=== PATIENT | male | born 1945 | race Caucasian/White ===

== ENCOUNTER 2020-07-01 12:06 | Emergency (ER) | payer MEDICARE, SELFPAY ==
[2020-07-01] VITALS (21 sets, daily range): BP systolic 134–186; BP diastolic 71–114; PULSE 67–85; RESP 12–24; TEMP 36.7; O2SAT 95–99
[2020-07-01 12:54] LABS: Abs Immature Grans 0.02 10^3/uL (0.0-0.06); Absolute Basophil Count 0.06 10^3/uL (0.0-0.2); Absolute Eosinophil Count 0.13 10^3/uL (0.0-0.7); Absolute Neutrophil Count 5.18 10^3/uL (1.2-6.7); Basophils % 0.7; Eosinophils % 1.5; HCT 39.1 % (40.0-50.0); HGB 13.1 g/dL (13.5-17.5); Immature Grans % 0.2; Lymphocytes % 28.6; MCH 31.9 pg (27.0-33.0); MCHC 33.5 % (32.0-36.0); MCV 95.1 fL (80-95); MPV 9.1 fL (8.0-11.0); Monocytes % 7.2; Neutrophils % 61.8; Nucleated RBC 0 %; Platelet Count 271 10^3/uL (130-400); RBC 4.11 10^6/uL (4.36-5.78); RDW 12.2 % (11.8-14.1); RDW-SD 42.8 fL; WBC 8.39 10^3/uL (4.4-10.8)
--- NOTE | 2020-07-01 13:00 | RT.EKG_ITS ---
APPROVED REPORT Exam: Resting ECG Patient Location: E HR:72 bpm ECG Measurements Heart Rate 72 AXIS ID 181 P 0 QRSd 89 QRS -3 QT 392 T 62 QTc 430 Conclusion Sinus rhythm...normal P axis, V-rate 60- 99 Nonspecific T abnormalities, lateral leads...T <-0.10mV, I aVL V5 V6 I have reviewed and interpreted ECG and agree with software generated interpretation.
[2020-07-01 13:06] LABS: ALT 19 U/L (16-63); AST 16 U/L (15-37); Albumin 3.8 g/dL (3.4-5.0); Alkaline Phosphatase 107 U/L (46-116); BUN 27 mg/dL (7-18); Bilirubin, Total 0.5 mg/dL (0.2-1.0); C-Reactive Protein 0.13 mg/dL (0.0-0.3); CREATININE 1.73 mg/dL (0.70-1.30); Calcium 8.6 mg/dL (8.5-10.1); Chloride 105 mmol/L (98-107); Estimated GFR 39.02 (mL/min/1.73m2); Glucose 146 mg/dL (74-106); Potassium 4.2 mmol/L (3.5-5.1); Sodium 141 mmol/L (136-145); Total Protein 7.8 g/dL (6.4-8.2)
--- NOTE | 2020-07-01 13:11 | W.ED.GENAD ---
Discharge Plan Disposition Patient Disposition: HOME Condition: Stable Discharge Details Clinical Impression: Blurred vision, right eye, Hypertension Primary Care Provider: Unknown,Unknown ED Provider: Janee Wahl Discharge Instructions Instructions: Hypertension (ED), Blurred Vision (ED) Additional Instructions: Continue to watch sodium in your diet as this can affect your blood pressure. Continue to watch carbohydrates and sugar as this can affect your blood sugar. Follow-up with your scheduled appointments with your primary care doctor and ophthalmology this week. Also call [facility] tomorrow morning to schedule a follow-up appointment for reevaluation as needed. Return immediately to the emergency department if you develop any worsening or new concerning symptoms. Referrals: [facility] [OTHER] - Discharge Data Discharge Date/Time-TO BE ENTERED AT DEPARTURE: 07/01/20 15:38 Discharge Physician: Janee Wahl Medical Decision Making 74-year-old male with a history of diabetes, hypertension and hypothyroidism who presents for right eye blurry vision and streaking since 930 last night. Blood pressure hypertensive, 160s to 180s systolic/80s. Remainder of vitals within normal limits. Patient appears nontoxic and comfortable and in no acute distress. He states he mainly notices his blurry vision with reading since last night. Patient unable to read anything on the eye chart without his corrective lenses. No focal deficits. Funduscopic exam limited due to lack of dilation the pupil but no obvious abnormalities. Differential diagnosis includes age-related vision loss, diabetic retinopathy, hypertensive retinopathy, CVA, ocular migraine, etc. Will obtain labs and CTA head and neck and give fluids and reassess. Labs reviewed and unremarkable. ESR 25. Glucose 146. C-reactive protein negative. CTA head and neck negative for acute occlusion. Patient reassessed and he denies any other new acute complaints and is requesting to go home. Discussed with patient that an MRI would be more sensitive for any central process but as he has had a similar process before due to age-related vision loss and cataract in his left eye, this may be a more peripheral process. Patient has an appointment with a primary care doctor and ophthalmology this week. Patient saw [facility] a few days ago prior to onset of the blurry vision in his right eye. Patient is advised to call [facility], his primary care doctor and ophthalmology tomorrow to confirm follow-up. He is advised to return here immediately with any acute change. He is advised that he may need an outpatient MRI brain as soon as possible for further evaluation of his right eye blurry vision if indicated. Medical Records Medical records reviewed: Yes I reviewed the patient's medical records. Imaging Data Radiologic Study: Radiologist's impression: CT Angiography Head With Contrast Exam date and time: 07/01/2020 1:11 PM Age: 74 years old Clinical indication: Visual disturbance; Type not specified; Patient HX: RT eye blurry, R/O acute CVA TECHNIQUE: Imaging protocol: Computed tomography angiography of the head with intravenous contrast. 3D rendering (Not supervised by radiologist): MIP and/or 3D reconstructed images were created by the technologist. Radiation optimization: All CT scans at this facility use at least one of these dose optimization techniques: automated exposure control; mA and/or kV adjustment per patient size (includes targeted exams where dose is matched to clinical indication); or iterative reconstruction. Contrast material: OMNI 350; Contrast volume: 85 ml; Contrast route: INTRAVENOUS (IV); COMPARISON: No relevant prior studies available. FINDINGS: ANTERIOR CIRCULATION: Right internal carotid artery: Intracranial atherosclerosis at the right carotid siphon. No significant stenosis or occlusion. Right middle cerebral artery: No flow-limiting stenosis or occlusion. Right anterior cerebral artery: No flow-limiting stenosis or occlusion. Left internal carotid artery: Intracranial atherosclerosis at the left carotid siphon. No significant stenosis or occlusion. Left middle cerebral artery: No flow-limiting stenosis or occlusion. Left anterior cerebral artery: No flow-limiting stenosis or occlusion. POSTERIOR CIRCULATION: Right vertebral artery: No flow-limiting stenosis or occlusion. Left vertebral artery: No flow-limiting stenosis or occlusion. Basilar artery: No flow-limiting stenosis or occlusion. Right posterior cerebral artery: No flow-limiting stenosis or occlusion. Left posterior cerebral artery: No flow-limiting stenosis or occlusion. Brain: No acute large territorial infarction or intracranial hemorrhage. Mild parenchymal volume loss and nonspecific white matter hypodensity, likely chronic microangiopathy. No mass effect or midline shift. Cerebral ventricles: No hydrocephalus. Paranasal sinuses: Mild ethmoid sinus disease. Bones/joints: No acute fracture. Soft tissues: Unremarkable. IMPRESSION: 1. No acute intracranial abnormality. If there is persistent clinical concern, MRI is a more sensitive means to assess for acute ischemia. 2. Intracranial atherosclerosis. No occlusion or flow-limiting stenosis. CT Angiography Neck With Contrast Exam date and time: 07/01/2020 1:11 PM Age: 74 years old Clinical indication: Visual disturbance; Type not specified; Patient HX: RT eye blurry, R/O acute CVA TECHNIQUE: Imaging protocol: Computed tomography angiography of the neck with intravenous contrast. 3D rendering (Not supervised by radiologist): MIP and/or 3D reconstructed images were created by the technologist. Radiation optimization: All CT scans at this facility use at least one of these dose optimization techniques: automated exposure control; mA and/or kV adjustment per patient size (includes targeted exams where dose is matched to clinical indication); or iterative reconstruction. Contrast material: OMNI 350; Contrast volume: 85 ml; Contrast route: INTRAVENOUS (IV); COMPARISON: No relevant prior studies available. FINDINGS: Right common carotid artery: Atherosclerotic disease of the right common carotid artery. No significant stenosis or occlusion. Right internal carotid artery: Atherosclerotic disease, without significant proximal right internal carotid artery stenosis by NASCET criteria. Right external carotid artery: No occlusion or stenosis of the origin. Right vertebral artery: No stenosis. No dissection or occlusion. Left common carotid artery: The left common carotid artery incidentally arises from the right brachiocephalic artery. No flow-limiting stenosis or occlusion. Left internal carotid artery: Retropharyngeal course of the left internal carotid artery. No flow-limiting stenosis or occlusion. Atherosclerotic disease. Left external carotid artery: No occlusion or stenosis of the origin. Left vertebral artery: No stenosis. No dissection or occlusion. Aorta: Atherosclerosis of the arch of the aorta. Bones/joints: Multilevel degenerative changes of the cervical spine. No acute osseous abnormality. Soft tissues: No significant soft tissue swelling. Lungs: Biapical pleuroparenchymal scarring. IMPRESSION: Atherosclerotic disease. No occlusion or flow-limiting stenosis. Lab Data Lab results reviewed: Yes I reviewed the patient's lab results. Labs: Laboratory Tests Range/Units 07/01/20 07/01/20 12:50 12:50 WBC (4.4-10.8) 10^3/uL 8.39 RBC (4.36-5.78) 10^6/uL 4.11 L Hgb (13.5-17.5) g/dL 13.1 L Hct (40.0-50.0) % 39.1 L MCV (80-95) fL 95.1 H MCH (27.0-33.0) pg 31.9 MCHC (32.0-36.0) % 33.5 RDW (11.8-14.1) % 12.2 Plt Count (130-400) 10^3/uL 271 MPV (8.0-11.0) fL 9.1 Immature Gran % 0.2 Neutrophils % 61.8 Lymphocytes % 28.6 Monocytes % 7.2 Eosinophils % 1.5 Basophils % 0.7 Nucleated RBC % % 0 Absolute Neutrophils (1.2-6.7) 10^3/uL 5.18 Absolute Lymphocytes (1.2-3.4) 10^3/uL 2.40 Absolute Monocytes (0.1-0.8) 10^3/uL 0.60 Absolute Eosinophils (0.0-0.7) 10^3/uL 0.13 Absolute Basophils (0.0-0.2) 10^3/uL 0.06 ESR (1-20) mm/hr 25 H Sodium (136-145) mmol/L 141 Potassium (3.5-5.1) mmol/L 4.2 Chloride (98-107) mmol/L 105 Carbon Dioxide (21.0-32.0) mmol/L 27.0 Anion Gap (3-11) mmol/L 9.0 BUN (7-18) mg/dL 27 H Creatinine (0.70-1.30) mg/dL 1.73 H Estimated GFR/1.73 m2 (mL/min/1.73m2) 39.02 Glucose (74-106) mg/dL 146 H Calcium (8.5-10.1) mg/dL 8.6 Total Bilirubin (0.2-1.0) mg/dL 0.5 AST (15-37) U/L 16 ALT (16-63) U/L 19 Alkaline Phosphatase (46-116) U/L 107 C-Reactive Protein (0.0-0.3) mg/dL 0.13 Total Protein (6.4-8.2) g/dL 7.8 Albumin (3.4-5.0) g/dL 3.8 ECG Data Attestation: I personally reviewed and interpreted this ECG (s) as follows: Interpretation: Rate of 72, sinus, T wave inversion in [address]VL[address] No acute [address] elevation or depression. VA 181. QRS 81. QTc 430. HPI General Mode of arrival: ambulatory. Date/Time Provider Initiated Documentation: 07/01/20 12:24. Limitations to Documentation: no limitations. Information obtained by: patient. HPI Narrative: Patient is a 74-year-old male with a history of diabetes, hypertension hypothyroidism who presents with blurry vision in his right eye that started at 930 last night. He states he noticed some streaking in his line of vision on the right side. He states he mainly notices ability vision when he is trying to read. He states he was not too concerned about his symptoms but was advised by a friend who is a nurse to come to the ER to rule out a possible stroke. Patient states he has had a similar episode occur in his left eye for which she was seen by an eye doctor and prescribed prescription eyeglasses. Patient states that he was also told previously that he has a cataract in his right eye and needs eventual bilateral cataract surgery. Patient denies headache, dizziness, fever, neck pain, chest pain, shortness of breath, abdominal pain, extremity weakness or numbness. Patient states he has been told in the past that he had type 2 diabetes but states this was never treated with medication and mainly controlled with diet. Patient states he moved here from [place] almost 5 years ago and is in the process of finding a primary care doctor. Patient states he had previously been treated for hypothyroidism with Synthroid which he states was told by a doctor had caused him to develop hypertension but he did not want to take medication for his thyroid or his blood pressure. Patient states he has not been as active or watching his diet as usual. General Stated Complaint: EyeProblem GIO: 3 Review of Systems All systems reviewed & are unremarkable except as noted in HPI and below Constitutional Constitutional: Reports as per HPI, Denies chills and Denies fever(s) Eyes Eyes: Reports blurry vision ENT Ears, Nose, Mouth, and Throat: Denies dizziness, Denies sore throat and Denies throat swelling Cardiovascular Cardiovascular: Denies chest pain and Denies dyspnea Respiratory Respiratory: Denies cough and Denies dyspnea Gastrointestinal Gastrointestinal: Denies abdominal pain, Denies diarrhea and Denies vomiting Genitourinary Genitourinary: Denies hematuria and Denies dysuria Musculoskeletal Musculoskeletal: Denies back pain and Denies numbness Integumentary/Breasts Skin/Breast: Denies lesions and Denies rash Neurologic Neurologic: Denies dizziness, Denies localized weakness and Denies numbness Allergic/Immunologic Allergic/Immunologic: Denies throat swelling PENDING SALE TO [facility] Medical History (Updated 07/01/20 @ 15:34 by Janee Wahl DO) Diabetes HTN (hypertension) Hypothyroidism Surgical History (Updated 07/01/20 @ 15:34 by Janee Wahl DO) Amputation foot, 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 Social History Smoking/Tobacco Use Status: Never Smoking risk assessment performed?: Yes Alcohol Intake: never Drug use: Never Substance use type: does not use Do you feel safe at home: Yes Do you feel safe in your relationship?: Yes Exam Const General: cooperative and no acute distress Orientation: alert, awake and oriented x3 HENMT Head: normal to inspection Face and sinus: normal facial exam Eyes General: appearance normal, both eyes and all related structures Pupils: PERRL EOM: EOM intact bilaterally Neck Neck: normal visual inspection and No submandibular swelling Lymphatic: no lymphadenopathy noted Chest Chest: normal inspection of the chest and no tenderness Resp Effort & Inspection: normal respiratory effort and able to speak in complete sentences Auscultation: clear to auscultation bilaterally Cardio Rate: regular rate Rhythm: regular rhythm GI Inspection: normal to inspection and obesity Palpation: soft, not firm, not rigid and nontender Auscultation: normal bowel sounds Skin General skin exam: no rashes or lesions noted Neuro General: patient alert, patient awake, patient oriented x3, gait normal, moves all extremities, no meningeal signs and no focal motor deficits Cranial Nerves: CN's II-XI intact bilaterally (other than blurry vision uncorrected) Cognition: normal cognition Speech: speech normal Motor: muscle tone normal throughout and strength 5/5 throughout Sensory Exam: no sensory deficits noted Extrem General: normal to inspection, full ROM, capillary refill normal, no calf tenderness bilaterally and no edema Psych Appearance: grossly normal Mental Status: mental status grossly normal Speech and Movement: speech and movement normal Affect: normal affect Course Vital Signs Vital signs: Vital Signs Temperature 98.1 F 07/01/20 12:17 Pulse 80 07/01/20 12:17 Respiratory Rate 18 07/01/20 12:17 Blood Pressure 169/83 H 07/01/20 12:17 Pulse Oximetry 98 07/01/20 12:17 Temperature 98.1 F 07/01/20 12:17 Temperature Source Skin 07/01/20 12:17 Pulse 80 07/01/20 12:17 Respiratory Rate 18 07/01/20 12:17 Respiratory Effort Non-Labored 07/01/20 12:24 Blood Pressure 169/83 H 07/01/20 12:17 Blood Pressure Position Sitting 07/01/20 12:17 Pulse Oximetry 98 07/01/20 12:17 Oxygen Delivery Method Room Air 07/01/20 12:17 Oxygen Flow Rate 0 07/01/20 12:17 Lab/Test Results Lab/Test Results: Laboratory Tests Range/Units 07/01/20 07/01/20 12:50 12:50 WBC (4.4-10.8) 10^3/uL 8.39 RBC (4.36-5.78) 10^6/uL 4.11 L Hgb (13.5-17.5) g/dL 13.1 L Hct (40.0-50.0) % 39.1 L MCV (80-95) fL 95.1 H MCH (27.0-33.0) pg 31.9 MCHC (32.0-36.0) % 33.5 RDW (11.8-14.1) % 12.2 Plt Count (130-400) 10^3/uL 271 MPV (8.0-11.0) fL 9.1 Immature Gran % 0.2 Neutrophils % 61.8 Lymphocytes % 28.6 Monocytes % 7.2 Eosinophils % 1.5 Basophils % 0.7 Nucleated RBC % % 0 Absolute Neutrophils (1.2-6.7) 10^3/uL 5.18 Absolute Lymphocytes (1.2-3.4) 10^3/uL 2.40 Absolute Monocytes (0.1-0.8) 10^3/uL 0.60 Absolute Eosinophils (0.0-0.7) 10^3/uL 0.13 Absolute Basophils (0.0-0.2) 10^3/uL 0.06 Sodium (136-145) mmol/L 141 Potassium (3.5-5.1) mmol/L 4.2 Chloride (98-107) mmol/L 105 Carbon Dioxide (21.0-32.0) mmol/L 27.0 Anion Gap (3-11) mmol/L 9.0 BUN (7-18) mg/dL 27 H Creatinine (0.70-1.30) mg/dL 1.73 H Estimated GFR/1.73 m2 (mL/min/1.73m2) 39.02 Glucose (74-106) mg/dL 146 H Calcium (8.5-10.1) mg/dL 8.6 Total Bilirubin (0.2-1.0) mg/dL 0.5 AST (15-37) U/L 16 ALT (16-63) U/L 19 Alkaline Phosphatase (46-116) U/L 107 C-Reactive Protein (0.0-0.3) mg/dL 0.13 Total Protein (6.4-8.2) g/dL 7.8 Albumin (3.4-5.0) g/dL 3.8
[2020-07-01 13:32] LABS: ESR 25 mm/hr (1-20)
[2020-07-01] MEDS: Omnipaque 350 MG/ML 100 ML BTL IJ (13:57)
[2020-07-01] MEDS: Normal Saline - Diluent 50 ML VIAL IV (13:57)
--- NOTE | 2020-07-01 14:11 | DI.CT_ITS ---
EXAM: CT BRAIN NECK CTA CLINICAL HISTORY: R eye blurry vision, r/o acute cva. TECHNIQUE: Imaging Protocol: Axial CT angiography was performed with multi-slice acquisition and mu lti-planar and/or 3D reconstructions. CONTRAST MATERIAL: Intravenous: Omnipaque 350 Contrast volume:structured data in ml COMPARISON: No exams were available for comparison FINDINGS: CT Head W/O: Ventricles and Extra axial spaces: Normal in size and morphology for the patient's age. Hemorrhage: None. Cerebral parenchyma: There are areas of decreased attenuation in the white matter most consistent wit h chronic microvascular ischemic change. No acute territorial infarct. Midline shift: None. Brainstem/Cerebellum: Normal. Calvarium: Normal. Visualized Paranasal sinuses/Mastoids: Opacification of a few ethmoid air cells is seen bilaterally. The remaining visualized paranasal sinuses and mastoid air cells are clear Soft Tissues: Unremarkable. CTA Brain W: Internal Carotid Arteries: Petrous: Normal. Cavernous: Atherosclerosis bilaterally. No occlusion or significant stenosis. No aneurysm. Cerebral: Normal. Anterior Cerebral Arteries: Right: No aneurysm, occlusion or significant stenosis. Left: No aneurysm, occlusion or significant stenosis. Middle Cerebral Arteries: Right: No aneurysm, occlusion or significant stenosis. Left: No aneurysm, occlusion or significant stenosis. Posterior cerebral Arteries: Right: No aneurysm, occlusion or significant stenosis. Left: No aneurysm, occlusion or significant stenosis. Vertebral Arteries: Right: No aneurysm, occlusion or significant stenosis. Left: No aneurysm, occlusion or significant stenosis. Basilar Artery: No aneurysm, occlusion or significant stenosis. CTA Neck W: Common Carotid: Right: No dissection, occlusion or significant stenosis. Mild atherosclerosis. Left: No dissection, occlusion or significant stenosis. Mild atherosclerosis. External Carotid: Right: No occlusion or significant stenosis. Left: No occlusion or significant stenosis. Internal Carotid: Right: No dissection, occlusion or significant stenosis. Mild atherosclerosis. Left: No dissection, occlusion or significant stenosis. Mild atherosclerosis. There is a retrophary ngeal course of the left internal carotid artery. Vertebral Artery: Right: No dissection, occlusion or significant stenosis. Left: No dissection, occlusion or significant stenosis. Mild atherosclerosis. Lung Apices: Normal. Bones: Degenerative changes. Soft Tissues: Normal. IMPRESSION: 1. No occlusion or significant stenosis on the CTA of the head. 2. No acute intracranial process. 3. No occlusion or significant stenosis on the CTA of the neck. RADIATION DOSE DELIVERED: 1,293.48mGy.cm Total DLP DATA REPOSITORY: All CT scans at this facility are submitted to the National Radiology Data Registry (NRDR) Dose Index Registry (DIR) with the [employer] ([employer]). RADIATION OPTIMIZATION: All CT scans at this facility use at least one of these dose optimization te chniques: automated exposure control; mA and/or kV adjustment per patient size (includes targeted exa ms where dose is matched to clinical indication); or iterative reconstruction.
--- NOTE | 2020-07-01 14:34 | DI.VRAD_ITS ---
PROCEDURE INFORMATION: Exam: CT Angiography Head With Contrast Exam date and time: 07/01/2020 1:11 PM Age: 74 years old Clinical indication: Visual disturbance; Type not specified; Patient HX: RT eye blurry, R/O acute CVA TECHNIQUE: Imaging protocol: Computed tomography angiography of the head with intravenous contrast. 3D rendering (Not supervised by radiologist): MIP and/or 3D reconstructed images were created by the technologist. Radiation optimization: All CT scans at this facility use at least one of these dose optimization techniques: automated exposure control; mA and/or kV adjustment per patient size (includes targeted exams where dose is matched to clinical indication); or iterative reconstruction. Contrast material: OMNI 350; Contrast volume: 85 ml; Contrast route: INTRAVENOUS (IV); COMPARISON: No relevant prior studies available. FINDINGS: ANTERIOR CIRCULATION: Right internal carotid artery: Intracranial atherosclerosis at the right carotid siphon. No significant stenosis or occlusion. Right middle cerebral artery: No flow-limiting stenosis or occlusion. Right anterior cerebral artery: No flow-limiting stenosis or occlusion. Left internal carotid artery: Intracranial atherosclerosis at the left carotid siphon. No significant stenosis or occlusion. Left middle cerebral artery: No flow-limiting stenosis or occlusion. Left anterior cerebral artery: No flow-limiting stenosis or occlusion. POSTERIOR CIRCULATION: Right vertebral artery: No flow-limiting stenosis or occlusion. Left vertebral artery: No flow-limiting stenosis or occlusion. Basilar artery: No flow-limiting stenosis or occlusion. Right posterior cerebral artery: No flow-limiting stenosis or occlusion. Left posterior cerebral artery: No flow-limiting stenosis or occlusion. Brain: No acute large territorial infarction or intracranial hemorrhage. Mild parenchymal volume loss and nonspecific white matter hypodensity, likely chronic microangiopathy. No mass effect or midline shift. Cerebral ventricles: No hydrocephalus. Paranasal sinuses: Mild ethmoid sinus disease. Bones/joints: No acute fracture. Soft tissues: Unremarkable. IMPRESSION: 1. No acute intracranial abnormality. If there is persistent clinical concern, MRI is a more sensitive means to assess for acute ischemia. 2. Intracranial atherosclerosis. No occlusion or flow-limiting stenosis. PROCEDURE INFORMATION: Exam: CT Angiography Neck With Contrast Exam date and time: 07/01/2020 1:11 PM Age: 74 years old Clinical indication: Visual disturbance; Type not specified; Patient HX: RT eye blurry, R/O acute CVA TECHNIQUE: Imaging protocol: Computed tomography angiography of the neck with intravenous contrast. 3D rendering (Not supervised by radiologist): MIP and/or 3D reconstructed images were created by the technologist. Radiation optimization: All CT scans at this facility use at least one of these dose optimization techniques: automated exposure control; mA and/or kV adjustment per patient size (includes targeted exams where dose is matched to clinical indication); or iterative reconstruction. Contrast material: OMNI 350; Contrast volume: 85 ml; Contrast route: INTRAVENOUS (IV); COMPARISON: No relevant prior studies available. FINDINGS: Right common carotid artery: Atherosclerotic disease of the right common carotid artery. No significant stenosis or occlusion. Right internal carotid artery: Atherosclerotic disease, without significant proximal right internal carotid artery stenosis by NASCET criteria. Right external carotid artery: No occlusion or stenosis of the origin. Right vertebral artery: No stenosis. No dissection or occlusion. Left common carotid artery: The left common carotid artery incidentally arises from the right brachiocephalic artery. No flow-limiting stenosis or occlusion. Left internal carotid artery: Retropharyngeal course of the left internal carotid artery. No flow-limiting stenosis or occlusion. Atherosclerotic disease. Left external carotid artery: No occlusion or stenosis of the origin. Left vertebral artery: No stenosis. No dissection or occlusion. Aorta: Atherosclerosis of the arch of the aorta. Bones/joints: Multilevel degenerative changes of the cervical spine. No acute osseous abnormality. Soft tissues: No significant soft tissue swelling. Lungs: Biapical pleuroparenchymal scarring. IMPRESSION: Atherosclerotic disease. No occlusion or flow-limiting stenosis. REFERENCES: NASCET CRITERIA. The degree of internal carotid artery stenosis is based on NASCET criteria. Normal is no stenosis. Mild is less than 50% stenosis. Moderate is 50-69% stenosis. Severe is 70% to 99% stenosis. Total occlusion is no detectable patent lumen. Dictated and Authenticated by: Karena Briggs MD. Ordering:SARAH Weller MD
[2020-07-01] MEDS: Normal Saline 250 ML 500 ML IV (14:35)
--- NOTE | 2020-07-01 17:56 | NUR.NOTE ---
referral to care management to establish pcp, needs opthamology and other resources.Nursing Note:
== END 2020-07-01 15:38 | disposition home or self-care (01) ==
PROVIDERS: Emergency Provider Physician Assistant
DX: H53.8 Other visual disturbances (principal); I10 Essential (primary) hypertension; E11.9 Type 2 diabetes mellitus without complications
CPT/HCPCS: 36415; 70496; 70498; 80053; 85652; 93005; 96360; 99285; 85025; 86140; 93010; J3490

== ENCOUNTER 2020-07-03 20:07 | Outpatient (REF) | payer MEDICARE, SELFPAY ==
[2020-07-03 19:19] LABS: COMMENT (LAB VIEW ONLY) 142.84 mg/dL
[2020-07-04 14:36] LABS: Hemoglobin A1C 7.2 % (<5.7)
[2020-07-04 14:37] LABS: Calculated LDL 75 mg/dL (<100); Cholesterol 132 mg/dL (<200); HDL Cholesterol 41 mg/dL (40-60); TSH 31.01 uIU/mL (0.36-3.74); Triglyceride 84 mg/dL (<150)
[2020-07-04 14:55] LABS: FREE T4 0.71 ng/dL (0.76-1.46)
== END 2020-07-03 20:27 ==
LOC: NCHCN 20:07
PROVIDERS: Visit Provider Physician Assistant
DX: E11.9 Type 2 diabetes mellitus without complications (principal); E03.9 Hypothyroidism, unspecified
CPT/HCPCS: 80061; 82043; 82570; 83036; 84439; 84443

== ENCOUNTER 2020-07-27 07:10 | Day surgery (SDC) | payer MEDICARE, SELFPAY ==
[2020-07-27 07:41] VITALS: BP 142/74; PULSE 78; RESP 16; TEMP 36.2; O2SAT 96
[2020-07-27] MEDS: Tropicam./Phenyleph. (1/2.5%) 5 ML BTL ×3 (08:00→08:12)
[2020-07-27] MEDS: Tetracaine 0.5% 4 ML BTL (09:43)
[2020-07-27] MEDS: Lidocaine 1% Pres-Free 5 ML VIAL (09:44)
[2020-07-27] MEDS: Trypan Blue 0.06% 0.5 ML SYR (09:45)
[2020-07-27] MEDS: Balanced Salt Soln.-PLUS 500 ML BAG (09:48)
[2020-07-27] MEDS: Duovisc Viscoelastic System EACH 1 EACH ×2 (09:49→09:55)
[2020-07-27] MEDS: Lidocaine 2% Jelly 6 ML SYR (09:49)
[2020-07-27] MEDS: Povidone-Iodine Ophth 30 ML BTL (09:51)
--- NOTE | 2020-07-27 10:14 | W.PM.DSUDISC ---
Discharge Plan Disposition Patient Disposition: HOME Condition: Good Discharge Details Attending Provider: Vladimir Coyle Primary Care Provider: Eh Jara Home Meds and New Rx's Prescriptions: No Action levothyroxine 50 mcg tablet 50 mcg PO DAILY RF: 0 lisinopril 5 mg tablet 5 mg PO DAILY RF: 0 Soya Lecithin Tablet 1 tab PO DAILY RF: 0 Discharge Instructions Stand Alone Forms: Post-op Topical Cataract Discharge Orders Discharge Orders: Discharge Order (Routine); Ordered 07/27/20 Ordered By: Vladimir Coyle DS: Diagnosis Discharge Diagnosis (1) Posterior subcapsular age-related cataract of left eye: Status: Resolved (2) Combined form of age-related cataract, left eye: Status: Resolved
--- NOTE | 2020-07-27 10:15 | ROE_ITS ---
Date of service: 07/27/20 Time of Service: 10:16 Operative Note Operative Note DATE OF PROCEDURE: 07/27/20 PRE-OP DIAGNOSIS: Nuclear/cortical cataract, left eye Severe posterior subcapsular cataract, left eye Poor red reflex, left eye secondary to cataract Vitreous hemorrhage, left eye POST-OP DIAGNOSIS: same PROCEDURE: Cataract extraction using phacoemulsification with intraocular lens implant, left eye, using capsular staining with Vision Blue SURGEON: Vladimir Coyle ANESTHESIA: MAC (with local sub-tenon's anesthetic injection) COMPLICATIONS: None Patient was transported to: same day Patient's condition: stable Implants: Dominic and Dominic / [employer] Tecnis [id number] Indications: Progressive decreased vision due to cataract, left eye, with poor r ed reflex Procedure Description: CATARACT SURGERY OPERATIVE REPORT PREOPERATIVE DIAGNOSIS: 1. Nuclear/cortical/posterior subcapsular cataract, left eye 2. Poor red reflex secondary to #1 POSTOPERATIVE DIAGNOSIS: Same OPERATION: 1. Cataract extraction using phacoemulsification with posterior chamber intraocular lens implant, left eye. 2. Capsular staining with Vision Blue IOL: IOL Beef Tagger/Model: Dominic & Dominic / LINA Tecnis [id number] IOL Power: + 21.5 diopters IOL Serial Number: [id number] Optic Diameter: 6.0 mm Haptic/Overall Diameter: 13.0 mm PHACO INFO: Smith PK Cleanurion Vision System with OZil and Active Fluidics Cumulative Dispersed Energy (CDE): 12.49 seconds SURGEON: Vladimir Coyle MD, MACO ANESTHESIA: Monitored A [facility] Care (MAC), with local sub-tenon's anesthetic infiltration COMPLICATIONS: None SPECIMENS: None INDICATIONS FOR PROCEDURE: The patient is a 74-year-old gentleman who recently suffered a vitreous hemorrhage in the left eye with loss of vision. He was noted to have moderate nuclear and cortical cataract with advanced posterior subcapsular cataract of the left eye with very poor vision. He has recently undergone intravitreal injections in both eyes. Cataract surgery is undertaken in the left eye to remove the visually significant cataract and improve visualization of the fundus. PROCEDURE: The correct surgical eye was identified and marked as the left eye and the pupil was dilated in the preoperative area using mydriatics and cycloplegics. The dilated pupil size was 7.0 mm. Patient elected to proceed without sedation.. The patient was brought to the operating room where cardiopulmonary monitoring was instituted and surgical time-out was performed, confirming the correct operative eye and IOL power. Topical anesthesia was administered and ophthalmic povidone-iodine 5% was instilled into the conjunctival fornices. Lidocaine gel was applied to the cornea and the arnoldo-ocular area was prepped with Betadine 10% solution and draped in the usual sterile fashion for intraocular surgery, including an aperture drape. A Tegaderm transparent film dressing was cut in half and used to cover the lashes and lid margins. Care was taken to sequester the lashes and lid margins under the Tegaderm dressing. A lid speculum was placed between the lids of the operative eye and the Anthony-Bull operating microscope was maneuvered into position. Jamie scissors were then used to make a conjunctival buttonhole approximately 6mm posterior to the limbus in the inferonasal quadrant. Blunt dissection was carried out to expose bare sclera, and a blunt-tipped sub-tenon?s anesthesia cannula was introduced and passed posteriorly along the globe where non- preserved plain lidocaine was injected into posterior sub-Tenon?s space. A sideport knife was used to make a paracentesis port superiorly/superiortemporally. Intraocular phenylephrine/lidocaine was injected int the anterior chamber.. Air was then injected into the anterior chamber, followed by Vision Blue, which was painted over the anterior capsule and then ir rigated out using BSS. The anterior chamber was filled with viscoelastic. A 2.4mm keratome knife was used to create a half-thickness groove at the limbus and then to construct a three-plane near-clear corneal tunnel extending 2.0mm into clear cornea at the 3:00 position. A flap was raised on the anterior capsule and capsulorhexis forceps were used to complete a continuous curvilinear capsulorhexis of 5.5 mm. Balanced salt solution was then used to perform cortical cleaving hydrodissection and nuclear hydrodelineation until the lens could be freely rotated within the capsular bag. The lens nucleus was then disassembled and removed within the capsular bag and iris plane using phacoemulsification. Residual cortical material was removed using the 45-degree angled silicone I/A tip with 0.3mm port. The posterior capsule was carefully polished to remove as much residual lens epithelial cells as safely possible. There was some residual posterior subcapsular plaque immediately centrally which could not be safely removed despite extensive polishing. The capsular bag was then inflated and the anterior chamber deepened with viscoelastic. The lens implant described above was inserted into the capsular bag using the LINA [place] Injector. A Kuglen hook was used to dial the IOL into position. Residual viscoelastic was then removed first from posterior to the IOL, then from the anterior chamber using the I/A handpiece. The lens implant was noted to center nicely within the capsular bag. The incisions were stromally hydrated, and the anterior chamber was reformed using BSS. Then 0.5cc of moxifloxacin 1.0mg/ml were injected into the capsular bag and anterior chamber. The incisions were checked with a Weck spear and found to be secure. Several drops of ophthalmic povidone-iodine 5% were then applied to the eye followed by two drops of Imprimis combination prednisolone/moxifloxacin/nepafenac solution. The drapes were removed and a clear plastic protective eye shield was placed over the eye. The patient was then returned to Same Day Surgery in stable condition.
== END 2020-07-27 10:55 | disposition home or self-care (01) ==
PROVIDERS: PCP Physician Assistant; Visit Provider Ophthalmology
PROC: (CPT 66982; principal; 2020-07-27 09:30)
DX: H25.012 Cortical age-related cataract, left eye (principal); H25.042 Posterior subcapsular polar age-related cataract, left eye; H25.12 Age-related nuclear cataract, left eye; H35.89 Other specified retinal disorders; H43.12 Vitreous hemorrhage, left eye; I10 Essential (primary) hypertension
CPT/HCPCS: 66982; V2632

== ENCOUNTER 2020-08-06 09:20 | Day surgery (SDC) | payer MEDICARE, SELFPAY ==
[2020-08-06 09:45] VITALS: BP 147/75; PULSE 76; RESP 16; TEMP 36.3; O2SAT 99
[2020-08-06] MEDS: Tropicam./Phenyleph. (1/2.5%) 5 ML BTL OD ×3 (09:55→10:06)
[2020-08-06] MEDS: Tetracaine 0.5% 4 ML BTL OD (10:39)
[2020-08-06] MEDS: Lidocaine 2% Jelly 6 ML SYR (10:40)
[2020-08-06] MEDS: Povidone-Iodine Ophth 30 ML BTL (10:40)
[2020-08-06] MEDS: Trypan Blue 0.06% 0.5 ML SYR (10:45)
[2020-08-06] MEDS: Lidocaine 1% Pres-Free 5 ML VIAL (10:45)
[2020-08-06] MEDS: Balanced Salt Soln.-PLUS 500 ML BAG (10:48)
[2020-08-06] MEDS: Duovisc Viscoelastic System EACH 1 EACH (10:49)
--- NOTE | 2020-08-06 11:13 | W.PM.DSUDISC ---
Discharge Plan Disposition Patient Disposition: HOME Discharge Details Attending Provider: Vladimir Coyle Primary Care Provider: Eh Jara Home Meds and New Rx's Prescriptions: No Action itlpqljfqnly-jyjqmat-qktsejhqi 1-0.5-0.1 % Drops,Suspension 1 drp OPHTHALMIC (EYE) DAILY RF: 0 levothyroxine 50 mcg tablet 50 mcg PO DAILY RF: 0 lisinopril 5 mg tablet 5 mg PO DAILY RF: 0 Soya Lecithin Tablet 1 tab PO DAILY RF: 0 Discharge Instructions Stand Alone Forms: Post-op Topical Cataract Discharge Orders Discharge Orders: Discharge Order (Routine); Ordered 08/06/20 Ordered By: Vladimir Coyle DS: Diagnosis Discharge Diagnosis (1) Nuclear sclerotic cataract of right eye: Status: Resolved (2) Cortical cataract of right eye: Status: Resolved (3) Posterior subcapsular age-related cataract, right eye: Status: Resolved
--- NOTE | 2020-08-06 11:14 | ROE_ITS ---
Date of service: 08/06/20 Time of Service: 11:14 Operative Note Operative Note DATE OF PROCEDURE: 08/06/20 PRE-OP DIAGNOSIS: Nuclear/cortical/posterior subcapsular cataract, right eye POST-OP DIAGNOSIS: same PROCEDURE: Cataract extraction using phacoemulsification with intraocular lens implantation, right eye, using capsular staining with Vision Blue SURGEON: Vladimir Coyle Refer to Anesthesia Record PATHOLOGY: none sent COMPLICATIONS: None Patient was transported to: same day Patient's condition: stable Implants: Dominic and Dominic / [employer] Tecnis [id number] Indications: Progressive visual loss due to cataract, right eye Procedure Description: CATARACT SURGERY OPERATIVE REPORT PREOPERATIVE DIAGNOSIS: 1. Nuclear/cortical/posterior subcapsular cataract, right eye 2. Poor red reflex secondary to #1 POSTOPERATIVE DIAGNOSIS: Same OPERATION: 1. Cataract extraction using phacoemulsification with posterior chamber intraocular lens implant, right eye. 2. Capsular staining with Vision Blue IOL: IOL [employer]pecting Dispatcher/Model: Dominic & Dominic / LINA Tecnis [id number] IOL Power: + 22.0 diopters IOL Serial Number: [id number] Optic Diameter: 6.0mm Haptic/Overall Diameter: 13.0mm PHACO INFO: Smith Zomatourion Vision System with OZil and Active Fluidics Cumulative Dispersed Energy (CDE): 7.42 seconds SURGEON: Vladimir Coyle MD, MACO ANESTHESIA: Monitored Anesthesia Care (MAC), with local sub-tenon's anesthetic infiltration COMPLICATIONS: None SPECIMENS: None INDICATIONS FOR PROCEDURE: Patient is a 74-year-old gentleman with history of diminished visual acuity in both eyes secondary to the development of bilateral nuclear/cortical/posterior subcapsular cataract, left eye worse than right. He has already undergone cataract surgery in the left eye and is doing well postoperatively. He now presents for cataract surgery in the right eye. PROCEDURE: The correct surgical eye was identified and marked as the right eye and the pupil was dilated in the preoperative area using mydriatics and cycloplegics. The dilated pupil size was 6.5 mm. The patient elected to proceed without sedation. The patient was brought to the operating room where cardiopulmonary monitoring was instituted and surgical time-out was performed, confirming the correct operative eye and IOL power. Topical anesthesia was administered and ophthalmic povidone-iodine 5% was instilled into the conjunctival fornices. Lidocaine gel was applied to the cornea and the arnoldo-ocular area was prepped with Betadine 10% solution and draped in the usual sterile fashion for intraocular surgery, including an aperture drape. A Tegaderm transparent film dressing was cut in half and used to cover the lashes and lid margins. Care was taken to sequester the lashes and lid margins under the Tegaderm dressing. A lid speculum was placed between the lids of the operative eye and the Anthony-Bull operating microscope was maneuvered into position. Jamie scissors were then used to make a conjunctival buttonhole approximately 6mm posterior to the limbus in the inferonasal quadrant. Blunt dissection was carried out to expose bare sclera, and a blunt-tipped sub-tenon?s anesthesia cannula was introduced and passed posteriorly along the globe where non- preserved plain lidocaine was injected into posterior sub-Tenon?s space. A sideport knife was used to make a paracentesis port inferotemporally. Intraocular phenylephrine/lidocaine was injected into the anterior chamber. Air was injected into the anterior chamber, followed by Vision Blue, which was painted over the anterior capsule and then irrigated out with BSS. The anterior chamber was filled with viscoelastic. A 2.4mm keratome knife was used to create a half-thickness groove at the limbus and then to construct a three-plane near- clear corneal tunnel extending 2.0mm into clear cornea superiortemporally. A flap was raised on the anterior capsule and capsulorhexis forceps were used to complete a continuous curvilinear capsulorhexis of 5.5 mm. Balanced salt solution was then used to perform cortical cleaving hydrodissection and nuclear hydrodelineation until the lens could be freely rotated within the capsular bag. The lens nucleus was then disassembled and removed within the capsular bag and iris plane using phacoemulsification. Residual cortical material was removed using the I/A handpiece. The posterior capsule was carefully polished to remove as much residual lens epithelial cells as safely possible. There was some residual posterior subcapsular plaque centrally and temporally which could not be safely removed despite extensive polishing. The capsular bag was then inflated and the anterior chamber deepened with viscoelastic. The lens implant described above was inserted into the capsular bag using the LINA [place] Injector. A Kuglen hook was used to dial the IOL into position. Residual viscoelastic was then removed first from posterior to the IOL, then from the anterior chamber using the I/A handpiece. The lens implant was noted to center nicely within the capsular bag. The incisions were stromally hydrated, and the anterior chamber was reformed using BSS. Then 0.5cc of moxifloxacin 1.0mg/ml were injected into the capsular bag and anterior chamber. The incisions were checked with a Weck spear and found to be secure. Several drops of ophthalmic povidone-iodine 5% were then applied to the eye followed by two drops of Imprimis combination prednisolone/moxifloxacin/nepafenac solution. The drapes were removed and a clear plastic protective eye shield was placed over the eye. The patient was then returned to Same Day Surgery in stable condition.
== END 2020-08-06 11:50 | disposition home or self-care (01) ==
PROVIDERS: PCP Physician Assistant; Visit Provider Ophthalmology
PROC: (CPT 66982; principal; 2020-08-06 12:30)
DX: H25.11 Age-related nuclear cataract, right eye (principal); H25.011 Cortical age-related cataract, right eye; H25.041 Posterior subcapsular polar age-related cataract, right eye; H35.89 Other specified retinal disorders; E11.9 Type 2 diabetes mellitus without complications
CPT/HCPCS: 66982; V2632

== ENCOUNTER 2020-09-03 14:17 | Outpatient (REF) | payer MEDICARE, SELFPAY ==
[2020-09-03 18:53] LABS: Hemoglobin A1C 7.3 % (<5.7)
[2020-09-03 18:55] LABS: Anion Gap 12.1 mmol/L (3-11); BUN 30 mg/dL (7-18); CO2 23.9 mmol/L (21.0-32.0); CREATININE 1.6 mg/dL (0.70-1.30); Calcium 8.4 mg/dL (8.5-10.1); Chloride 108 mmol/L (98-107); Glucose 125 mg/dL (74-106); Potassium 4.3 mmol/L (3.5-5.1); Sodium 144 mmol/L (136-145); TSH 12.44 uIU/mL (0.36-3.74)
== END 2020-09-03 14:18 | disposition home or self-care (01) ==
LOC: NCHCN 14:17
PROVIDERS: PCP Physician Assistant; Visit Provider Physician Assistant
DX: E11.9 Type 2 diabetes mellitus without complications (principal); E03.9 Hypothyroidism, unspecified; N28.9 Disorder of kidney and ureter, unspecified
CPT/HCPCS: 80048; 83036; 84443

== ENCOUNTER 2023-04-20 15:39 | Outpatient (REF) | payer MEDICARE, SELFPAY ==
[2023-04-20 17:55] LABS: COMMENT (LAB VIEW ONLY) 291.29 mg/dL
[2023-04-20 17:56] LABS: Microalb ug/mg Crea 83.4 ug/mg Cr
== END 2023-04-20 15:40 | disposition home or self-care (01) ==
LOC: NCHCN 15:39
PROVIDERS: PCP Physician Assistant; Visit Provider Physician Assistant
DX: E11.9 Type 2 diabetes mellitus without complications (principal)
CPT/HCPCS: 82043; 82570

== ENCOUNTER 2023-06-24 10:42 | Outpatient (REF) | payer MEDICARE, SELFPAY ==
[2023-06-24 16:11] LABS: HCT 40.3 % (40.0-50.0); HGB 13.7 g/dL (13.5-17.5); MCH 32.1 pg (27.0-33.0); MCV 94 fL (80-95); MPV 9.8 fL (8.0-11.0); Platelet Count 307 10^3/uL (130-400); RBC 4.27 10^6/uL (4.36-5.78); RDW 12.9 % (11.8-14.1); RDW-SD 44.4 fL; WBC 7.37 10^3/uL (4.4-10.8)
[2023-06-24 16:27] LABS: Hemoglobin A1C 8.6 % (<5.7)
[2023-06-24 16:30] LABS: ALT 19 U/L (16-63); AST 19 U/L (15-37); Albumin 3.4 g/dL (3.4-5.0); Alkaline Phosphatase 128 U/L (46-116); Anion Gap 7.9 mmol/L (3-11); BUN 20 mg/dL (7-18); Bilirubin, Total 0.5 mg/dL (0.2-1.0); CO2 27.1 mmol/L (21.0-32.0); CREATININE 1.8 mg/dL (0.70-1.30); Calcium 8.7 mg/dL (8.5-10.1); Calculated LDL 74 mg/dL (<100); Chloride 106 mmol/L (98-107); Cholesterol 136 mg/dL (<200); Estimated GFR 38.77 (mL/min/1.73m2); Glucose 166 mg/dL (74-106); HDL Cholesterol 43 mg/dL (40-60); Potassium 4.7 mmol/L (3.5-5.1); Sodium 141 mmol/L (136-145); Total Protein 7.2 g/dL (6.4-8.2); Triglyceride 98 mg/dL (<150)
== END 2023-06-24 10:43 | disposition home or self-care (01) ==
LOC: NCHCN 10:42
PROVIDERS: PCP Physician Assistant; Visit Provider Physician Assistant
DX: E11.9 Type 2 diabetes mellitus without complications (principal)
CPT/HCPCS: 80053; 80061; 85027; 83036

== ENCOUNTER 2023-08-20 15:43 | Outpatient (REF) | payer MEDICARE, SELFPAY ==
[2023-08-20 16:26] LABS: Anion Gap 8.4 mmol/L (3-11); BUN 28 mg/dL (7-18); CO2 26.6 mmol/L (21.0-32.0); Calcium 8.2 mg/dL (8.5-10.1); Chloride 107 mmol/L (98-107); Estimated GFR 34.16 (mL/min/1.73m2); Glucose 245 mg/dL (74-106); Potassium 4.7 mmol/L (3.5-5.1); Sodium 142 mmol/L (136-145)
[2023-08-20 16:30] LABS: Hemoglobin A1C 8.4 % (<5.7)
== END 2023-08-20 15:44 | disposition home or self-care (01) ==
LOC: NCHCN 15:43
PROVIDERS: PCP Physician Assistant; Visit Provider Physician Assistant
DX: E03.9 Hypothyroidism, unspecified (principal); E11.9 Type 2 diabetes mellitus without complications; N28.9 Disorder of kidney and ureter, unspecified
CPT/HCPCS: 80048; 83036; 84443

== ENCOUNTER → 2023-12-31 09:18 | Outpatient (BNVA) | payer MEDICARE, SELFPAY | PROVIDERS: PCP Physician Assistant; Referring Provider Physician Assistant; Visit Provider Physical Therapy Assistant | DX: Z12.11 Encounter for screening for malignant neoplasm of colon (principal) ==